=== PATIENT | male | born 1955 | race Caucasian/White ===

== ENCOUNTER → 2023-11-30 20:30 | Outpatient (REF) | payer MEDICARE, SELFPAY | LOC: MRI 20:30 | PROVIDERS: ATTENDING PHYSICIAN Orthopaedic Surgery Hand Surgery; FAMILY PHYSICIAN Family Medicine | DX: M75.42 Impingement syndrome of left shoulder (principal) | CPT/HCPCS: 73221 ==

== ENCOUNTER → 2024-01-10 06:24 | Day surgery (SDC) | payer MEDICARE, SELFPAY | LOC: GI 06:24 | PROVIDERS: ATTENDING PHYSICIAN Internal Medicine | DX: Z12.11 Encounter for screening for malignant neoplasm of colon (principal); K64.9 Unspecified hemorrhoids; D12.0 Benign neoplasm of cecum; D12.2 Benign neoplasm of ascending colon; Z86.010 Personal history of colon polyps; Z80.0 Family history of malignant neoplasm of digestive organs | CPT/HCPCS: 45380; 88305 ==

== ENCOUNTER → 2024-06-10 09:00 | Outpatient (REF) | payer MEDICARE, SELFPAY ==
[2024-06-10 14:09] LABS: % Basophils 0.1 % (0-2); % Eosinophils 0.1 % (0-6); % Immature Granulocytes 0.3 % (0-0.5); % Lymphocytes 16.7 % (20.5-51.1); % Monocytes 8.1 % (1.7-9.3); % Neutrophils 74.7 % (42.2-75.2); Absolute Lymphocytes 1.4 10^3/uL (1.2-3.4); Absolute Monocytes 0.7 10^3/uL (0.1-0.6); Absolute Neutrophils 6.5 10^3/uL (1.4-6.5); Hematocrit 40.9 % (39.0-52.0); Hemoglobin 14.3 g/dL (13.0-18.0); Mean Corpuscular Hgb 33.3 pg (27.0-31.0); Mean Corpuscular Volume 95.1 fL (80.0-94.0); Mean Platelet Volume 9.5 fL (7.4-10.4); Nucleated Red Blood Cells % 0 % (-); Platelet Count 206 10^3/uL (130-400); Red Cell Dist. Width 11.8 % (11.5-14.5); White Blood Cell Count 8.6 10^3/uL (4.8-10.8)
[2024-06-10 15:30] LABS: Blood Urea Nitrogen 20 mg/dl (9-20); Calcium 9.6 mg/dl (8.4-10.2); Carbon Dioxide 30 mmol/L (22-30); Chloride 101 mmol/L (98-107); Glucose 67 mg/dl (70-99); Potassium 4.7 mmol/L (3.5-5.1); Sodium 138 mmol/L (135-145); eGFR > 60.00
== END ==
LOC: REG 09:00
PROVIDERS: ATTENDING PHYSICIAN Orthopaedic Surgery Hand Surgery; FAMILY PHYSICIAN Family Medicine; PRIMARYCARE PHYSICIAN Internal Medicine Cardiovascular Disease
DX: Z01.818 Encounter for other preprocedural examination (principal)
CPT/HCPCS: 36415; 80048; 85025; 93005

== ENCOUNTER → 2024-11-10 16:28 | Outpatient (REF) | payer MEDICARE, SELFPAY | LOC: RAD 16:28 | PROVIDERS: ATTENDING PHYSICIAN Student in an Organized Health Care Education/Training Program | DX: M54.50 Low back pain, unspecified (principal); G89.29 Other chronic pain | CPT/HCPCS: 71046; 72072; 72110 ==

== ENCOUNTER → 2024-11-25 12:51 | Outpatient (REF) | payer MEDICARE, SELFPAY | LOC: RAD 12:51 | PROVIDERS: ATTENDING PHYSICIAN Student in an Organized Health Care Education/Training Program; FAMILY PHYSICIAN Family Medicine | DX: M54.50 Low back pain, unspecified (principal); G89.29 Other chronic pain | CPT/HCPCS: 76775 ==

== ENCOUNTER 2025-04-21 13:11 | Emergency (ER) | payer MEDICARE, SELFPAY ==
[2025-04-21 13:19] VITALS: BP 156/90
[2025-04-21 14:31] VITALS: BMI 21.3
--- NOTE | 2025-04-21 14:41 | ED.MUSCINJ ---
HPI-Injury
General
Chief Complaint: Musculo-Skeletal Complaint
Source: patient
Exam Limitations: none
Time Seen by Provider: 04/21/25 14:26
History of Present Illness-Injury
Initial Injury comments:
69-year-old male presents complaining of a popping sensation he felt over the inferior portion of his heel while playing pickle ball today. He has been dealing with plantar fascial pain over the past month today he planted on his foot and felt a
pop. He is had pain with ambulation since then. No other complaints.
Past History
Past History
ED Past Medical History: None
ED Past Surgical History: None
Social History
Tobacco: Non-smoker
Personal:
Living: with family
Phy Exam
Physical Exam
Physical Exam:
General: Well-appearing male no acute respiratory distress
HEENT: Normal cephalic atraumatic
Musculoskeletal exam: Right foot is tender over the anterior portion of the calcaneus. He has no tenderness about the Achilles. He is full strength with plantarflexion and dorsiflexion.
Injury Course
Orders/Labs/Results
Orders:
Orders
04/21/25 13:22
CR Foot - Right Min 3 Views Urgent
Comment:
Reason For Exam: pain
MDM/Problems Addressed
Differential Diagnosis Includes:
Right foot comfort felt a pop over the plantar surface of his foot. Question possible strain of the plantar fascia x-rays were obtained to evaluate for fracture which are personally reviewed and are negative. Offered patient walking boot for
ambulation however he declined and states has been doing well with his crutches. I recommended he call special
*Pulse Oximetry
SaO2: 100
Oxygen Mode of Delivery: Room air
Patient hypoxic: no
*Critical Care Note
Total Time (30-74mins, 75-104mins- exclusive of procedures): Not Applicable
ED Attending Note
-
Portions of this chart may have been created with voice recognition software.� Occasional wrong word or��sound alike� substitutions may have occurred due to the inherent limitations of voice recognition software.
Discharge Plan
Departure
Patient Disposition: Home (Routine Discharge)
Date of Disposition: 04/21/25
Time of Disposition: 14:45
Patient with high blood pressure during this ER visit?: No
Discharge Problem:
Right foot strain
Instructions: Muscle and Bone Pain (DC)
Prescriptions:
No Action
multivitamin [Multi-Day] 1 EACH tablet
1 ea PO DAILY
coenzyme Q10 [Co Q-10] 100 MG capsule
100 mg PO DAILY
red yeast rice 600 MG tablet
1,200 mg PO DAILY
hdhfs-hw-5-mnn-zyl-pvqlffm-ast [krill oil] 1 EACH capsule
1 ea PO DAILY
pfsia-5y-bqx-epa-fish oil-D3 [[place]-3 Plus Vitamin D3] 1 EACH capsule,delayed release(DR/EC)
1 ea PO DAILY
apixaban [Eliquis] 5 MG tablet
5 mg PO BID Qty: 90 0RF
Referrals:
Misael Coffman DPM [Active, Podiatry]
Adrián Chun MD [Family Provider, Family Practice]
Activity Restrictions/Additional Instructions:
Continue with ibuprofen or Tylenol for pain. Use crutches as needed for support. Follow-up with foot and ankle specialist
Interventions
Interventions:
*Risk Screen - Suicide Last Done: 04/21/25 13:19
*General Assessment Last Done: 04/21/25 13:19
*Neglect/Abuse Screening Last Done: 04/21/25 13:19
*ED- Fall Risk Assessment Last Done: 04/21/25 14:31
*ED COVID-19 Vaccine History Last Done: 04/21/25 14:31
*ED Influenza Vaccine History Last Done: 04/21/25 14:31
ED-Musculoskeletal Assessment Last Done: 04/21/25 14:31
Discharge Date and Time
Print Language: DIVEHI
== END 2025-04-21 15:06 | disposition home or self-care (01) ==
LOC: EMR 13:11
PROVIDERS: EMERGENCY PHYSICIAN Emergency Medicine; FAMILY PHYSICIAN Family Medicine
DX: S96.911A Strain of unspecified muscle and tendon at ankle and foot level, right foot, initial encounter (principal); X58.XXXA Exposure to other specified factors, initial encounter; Y93.73 Activity, racquet and hand sports; Y92.312 Tennis court as the place of occurrence of the external cause
CPT/HCPCS: 99283; 73630